=== PATIENT | female | born 1995 ===

== ENCOUNTER 2018-07-18 16:37 | Inpatient (IN) | payer MEDICAID ==
[2018-07-18 16:47] VITALS: O2SAT 99
--- NOTE | 2018-07-18 16:53 | C.PDOC ---
History Of Present Illness 22 y/o female is transferred from [facility] for psychiatric evaluation. Patient has been medically cleared prior to transfer arrival. Patient has no new symptoms or any complaints at this time. TRANSFER FROM [facility] FOR PSYCH TRANSFER. MED CLEAR PRIOR TO TRANSFER ARRIVAL. NO NEW SX EXAM NEG Time Seen by Provider: 07/18/18 16:43 History Per: Patient History/Exam Limitations: no limitations Onset/Duration Of Symptoms: Days Current Symptoms Are (Timing): Still Present Past Medical History Reviewed: Historical Data, Nursing Documentation, Vital Signs Vital Signs: Last Vital Signs Temp 98.8 F 07/18/18 16:41 Pulse 68 07/18/18 16:41 Resp 20 07/18/18 16:41 BP 111/70 07/18/18 16:41 Pulse Ox 99 07/18/18 16:41 Family History: States: No Known Family Hx Review Of Systems Except As Marked, All Systems Reviewed And Found Negative. Psych: Positive for: Depression Physical Exam - Physical Exam Appears: Non-toxic, No Acute Distress Skin: Warm, Dry Head: Atraumatic, Normacephalic Eye(s): bilateral: Normal Inspection Oral Mucosa: Moist Neck: Supple Cardiovascular: Rhythm Regular, No Murmur Respiratory: Normal Breath Sounds, No Rales, No Rhonchi, No Wheezing, Other (NARD) Extremity: Bilateral: Atraumatic, Normal Color And Temperature, Normal ROM Neurological/Psych: Oriented x3, Normal Speech ED Course And Treatment O2 Sat by Pulse Oximetry: 99 (RA) Pulse Ox Interpretation: Normal Disposition Counseled Patient/Family Regarding: Studies Performed, Diagnosis - Disposition Disposition: HOSPITALIZED Disposition Time: 16:44 Condition: STABLE - POA Present On Arrival: None - Clinical Impression Clinical Impression: Depression - Scribe Statement The provider has reviewed the documentation as recorded by the Buddyibedenilson Gongora Provider Attestation: All medical record entries made by the Buddyibedenilson were at my direction and personally dictated by me. I have reviewed the chart and agree that the record accurately reflects my personal performance of the history, physical exam, medical decision making, and the department course for this patient. I have also personally directed, reviewed, and agree with the discharge instructions and disposition.
--- NOTE | 2018-07-18 18:46 | PCM.BM ---
<Radha Roman - Last Filed: 07/18/18 18:45> Treatment Plan Problems - Problems identified on initial assessmt Suicidal Ideation Date Initiated: 07/18/18 Time Initiated: 17:30 Assessment reference: NA Status: Monitor Self Harm Date Initiated: 07/18/18 Time Initiated: 17:30 Assessment reference: NA Status: Active Treatment assets and liabiliti Patient Assests: good support system, negotiates basic needs Patient Liabilities: poor support system, relationship conflicts - Milieu Protocol Maintain good personal hygiene: daily Encourage regular showers, daily Remind patient to perform daily oral care, every shift Assist patient to perform ADL's Conduct patient checks and document Observation sheet: Q15 minutes Maintain personal safety: every shift Educate patient to report safety concerns to staff, every shift Monitor environment for contraband/sharps Medication safety: Monitor for expected outcome, potential side effects: every shift, Assess barriers to learning: every shift, Assess readiness for medication education: every shift <Israel Jones - Last Filed: 07/20/18 11:08> - Diagnosis (1) Depression Status: Acute Interventions: 07/20/18 11:08 * Assess/adjust medications daily and /or as needed * See patient on an individual basis 7x/week to assess symptoms of depression * Monitor for side effects & effectiveness of medications * <Jazmin Saldivar - Last Filed: 07/20/18 11:52> Family Contact Family involvement: Family/SO is involved Family contact: Patient declines to allow family contact at present - Goals for Treatment Patient goals for treatment: "I need an outpatient program." Discharge/Continuing Care - Education Needs Education Needs: Patient Medication, Patient Coping Skills - Discharge Discharge Criteria: Tolerates medication w/o severe side effects, Reduction of target symptoms Discharge to:: Home, With Family - Treatment Team Participation Discussed with Family/SO: No Was Patient/Family/SO present at Treatment Team Meeting: Yes
[2018-07-19 09:19] LABS: FREE T4 1.01 ng/dL (0.78-2.19)
[2018-07-19] MEDS: Pantoprazole 40 mg EC Tab PO SCH (09:26)
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
[2018-07-20] MEDS: Pantoprazole 40 mg EC Tab PO SCH (09:51)
--- NOTE | 2018-07-20 11:09 | PCM.PYCHPN ---
Psychiatric Progress Note - Psychiatric Progress Note Patient seen today, length of contact: 15 min Patient Chief Complaint: I am still feeling irritable Problems Identified/Issues Discussed: Patient was seen and evaluated, chart reviewed discussed with staff. Patient still reports depressed mood and still reports feelings of hopelessness. As per staff she is less irritable and less agitated than before. She still reports some irritability and agitation however she remained calm and cooperative and easily redirectable. She denies any auditory and visual hallucinations. She is taking medication but denies any side effects. She needs to stay longer for further stabilization. Medication Change: Yes Medical Record Reviewed: Yes Mental Status Examination - Cognitive Function Orientation: Person, Place, Situation, Time Memory: Intact Attention: WNL Concentration: Poor Association: WNL Fund of Knowledge: Poor - Mood Mood: Depressed, Anxious - Affect Affect: Constricted - Speech Speech: Soft - Formal Thought Process Formal Thought Process: No Impairment - Suicidal Ideation Suicidal Ideation: No - Homicidal Ideation Homicidal Ideation: No Goal/Treatment Plan - Goal/Treatment Plan Need for Continued Stay: Remain at risks for inpatient hospitalization Progress Toward Problem(s) and Goals/Treatment Plan: Major depression, recurrent, severe, w/o psychosis CYNTHIA r/o Borderline personality Start Lexapro for depression and anxiiety As need medications All risks, benefits and alternatives of the meds discussed, and the pt agreed and understood. Attend groups and activities Individual therapy daily Psychoeducation and support daily Suicide precautions - agreed with safety plan Encourage compliance with meds and after care Refer to outpatient program Teach healthy lifestyle methods, i.e. diet, exercise, meditation Smoking cessation and patch if needed
[2018-07-21] MEDS ORDERED: Pneumococcal 23-Valent Vaccine IM ONE (10:00)
[2018-07-21] MEDS: Pantoprazole 40 mg EC Tab PO SCH (11:12)
[2018-07-21] MEDS ORDERED: Simethicone 80 mg Chewtab PO PRN (19:49)
[2018-07-21] MEDS: Aluminum Hydroxide/Magnesium Hydroxide Susp (30 mL) PO PRN (22:13)
[2018-07-22] MEDS: Pantoprazole 40 mg EC Tab PO SCH (10:09)
--- NOTE | 2018-07-22 11:06 | PCM.PYCHPN ---
Psychiatric Progress Note - Psychiatric Progress Note Patient seen today, length of contact: 15 min Patient Chief Complaint: I am still feeling irritable Problems Identified/Issues Discussed: Patient was seen and evaluated, chart reviewed discussed with staff. Patient reports improvement in her mood and reports improvement in the feelings of hopelessness and helplessness. She reports some improvement in her irritability and agitation. She still complaining of abdominal pain. She is reporting dizziness and tremors from medications. She denies any auditory hallucinations or any paranoia. However she is taking medications and denies any other side effects. She needs to stay longer for further stabilization. Supportive therapy was given. Medication Change: Yes Medical Record Reviewed: Yes Mental Status Examination - Cognitive Function Orientation: Person, Place, Situation, Time Memory: Intact Attention: WNL Concentration: Poor Association: WNL Fund of Knowledge: Poor - Mood Mood: Depressed, Anxious - Affect Affect: Constricted - Speech Speech: Soft - Formal Thought Process Formal Thought Process: No Impairment - Suicidal Ideation Suicidal Ideation: No - Homicidal Ideation Homicidal Ideation: No Goal/Treatment Plan - Goal/Treatment Plan Need for Continued Stay: Remain at risks for inpatient hospitalization Progress Toward Problem(s) and Goals/Treatment Plan: Major depression, recurrent, severe, w/o psychosis CYNTHIA r/o Borderline personality Lexapro for depression and anxiiety Discontinue Neurontin Trazodone for insomnia Lamotrigine for mood As need medications All risks, benefits and alternatives of the meds discussed, and the pt agreed and understood. Attend groups and activities Individual therapy daily Psychoeducation and support daily Suicide precautions - agreed with safety plan Encourage compliance with meds and after care Refer to outpatient program Teach healthy lifestyle methods, i.e. diet, exercise, meditation Smoking cessation and patch if needed
[2018-07-23] MEDS: Pantoprazole 40 mg EC Tab PO SCH (09:26)
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
[2018-07-23] MEDS ORDERED: Iohexol 240 (50 ml) PO ONE (16:45)
[2018-07-23 17:04] LABS: INR 1.1; PROTHROMBIN TIME 12.5 SECONDS (9.7-12.2)
[2018-07-23 17:11] LABS: ALB/GLOB RATIO 1.4 (1.0-2.1); ALBUMIN 4.5 g/dL (3.5-5.0); ALT/SGPT 27 U/L (9-52); AST/SGOT 36 U/L (14-36); BASO # 0.1 K/uL (0.0-0.2); BASO % 1.3 % (0.0-2.0); BLOOD UREA NITROGEN 10 mg/dL (7-17); CALCIUM 9.5 mg/dl (8.6-10.4); EOS # 0.3 K/uL (0.0-0.7); EOS % 3.1 % (0.0-4.0); GFR NON-AFRICAN AMERICAN > 60; HEMOGLOBIN 13.2 g/dL (11.0-16.0); LIPASE 133 U/L (23-300); LYMPH # 2.6 K/uL (1.0-4.3); LYMPH % 28.3 % (20.0-40.0); MEAN CELL VOLUME 92.2 fL (81.0-99.0); MEAN CORPUSCULAR HEMOGLOBIN 29.7 pg (27.0-31.0); MEAN CORPUSCULAR HGB CONC 32.2 g/dL (33.0-37.0); MEAN PLATELET VOLUME 7.4 fL (7.2-11.7); MONO % 10.6 % (0.0-10.0); NEUT # 5.2 K/uL (1.8-7.0); NEUT % 56.7 % (50.0-75.0); RBC 4.45 Mil/uL (3.80-5.20); RED CELL DISTRIBUTION WIDTH 14.1 % (11.5-14.5); WHITE BLOOD COUNT 9.1 K/uL (4.8-10.8)
--- NOTE | 2018-07-24 09:08 | RAD ---
Chest x-ray two views HISTORY: Chest pain. Comparison: None available. Findings: No focal infiltrate or effusion. Bibasilar breast and nipple shadows. Heart size within normal limits. Impression: No focal infiltrate or effusion.
--- NOTE | 2018-07-24 09:26 | PCM.PYCHPN ---
Psychiatric Progress Note - Psychiatric Progress Note Patient seen today, length of contact: 15 min Patient Chief Complaint: I am still feeling irritable Problems Identified/Issues Discussed: Patient was seen and evaluated, chart reviewed discussed with staff. Patient reports racing thoughts and irritability. However, she reports some improvement in her mood and reports improvement in the feelings of hopelessness and helplessness. She still complaining of abdominal pain. She denies any auditory hallucinations or any paranoia. However she is taking medications and denies any other side effects. She needs to stay longer for further stabilization. Supportive therapy was given. Medication Change: Yes Medical Record Reviewed: Yes Mental Status Examination - Cognitive Function Orientation: Person, Place, Situation, Time Memory: Intact Attention: WNL Concentration: Poor Association: WNL Fund of Knowledge: Poor - Mood Mood: Depressed, Anxious - Affect Affect: Constricted - Speech Speech: Soft - Formal Thought Process Formal Thought Process: Flight of ideas - Suicidal Ideation Suicidal Ideation: No - Homicidal Ideation Homicidal Ideation: No Goal/Treatment Plan - Goal/Treatment Plan Need for Continued Stay: Remain at risks for inpatient hospitalization Progress Toward Problem(s) and Goals/Treatment Plan: Bipolar disorder mixed severe, w/o psychosis CYNTHIA r/o Borderline personality Lexapro for depression and anxiiety Trazodone for insomnia Lamotrigine for mood As need medications All risks, benefits and alternatives of the meds discussed, and the pt agreed and understood. Attend groups and activities Individual therapy daily Psychoeducation and support daily Suicide precautions - agreed with safety plan Encourage compliance with meds and after care Refer to outpatient program Teach healthy lifestyle methods, i.e. diet, exercise, meditation Smoking cessation and patch if needed
--- NOTE | 2018-07-24 09:58 | CT ---
Date of service: 07/23/2018 PROCEDURE: CT Abdomen and Pelvis with Oral contrast. HISTORY: severe abdominal pain COMPARISON: None. TECHNIQUE: Contiguous axial images of the abdomen and pelvis. Oral contrast was administered. No IV contrast given. Coronal and Sagittal reformats generated. Radiation dose: Total exam DLP = 943.28 mGy-cm. This CT exam was performed using one or more of the following dose reduction techniques: Automated exposure control, adjustment of the mA and/or kV according to patient size, and/or use of iterative reconstruction technique. FINDINGS: LOWER THORAX: Unremarkable. LIVER: The liver is mildly enlarged. GALLBLADDER AND BILE DUCTS: No evidence of acute cholecystitis or biliary duct dilatation. PANCREAS: Unremarkable. No mass. No ductal dilatation. SPLEEN: Unremarkable. No splenomegaly. ADRENALS: Unremarkable. KIDNEYS AND URETERS: Unremarkable. No stone or hydronephrosis. BLADDER: Grossly unremarkable. REPRODUCTIVE: There is IUD seen in the uterus. APPENDIX: There is no evidence of appendicitis BOWEL: The stomach is mildly distended. There is yfwd-[id number]-pimpbhlg small bowel wall thickening noted in the mid and upper abdomen likely involve the duodenum. Findings are nonspecific and the possibility of enteritis should be considered. No evidence of high-grade bowel obstruction. Fgqd-[id number]-yyyrhbix constipation noted. PERITONEUM: Unremarkable. No fluid collection. No free air. LYMPH NODES: Unremarkable. No enlarged lymph nodes. VASCULATURE: Unremarkable. No aortic aneurysm. No aortic atherosclerotic calcification or mural plaque present. BONES: No fracture or destructive lesion. OTHER FINDINGS: None. IMPRESSION: Iihr-fi-ferlrynb proximal small bowel wall thickening suspicious for enteritis. No evidence of bowel obstruction. Jqng-hw-snchdfdt constipation. Preliminary report contains concordant findings was submitted by [facility] Radiology.
[2018-07-24] MEDS: Pantoprazole 40 mg EC Tab PO SCH (10:10)
--- NOTE | 2018-07-24 13:40 | RAD ---
Date of service: 07/23/2018 PROCEDURE: Radiographs of the Chest and Left Ribs. HISTORY: LUQ pain, ribs 5-8 COMPARISON: None available. TECHNIQUE: Frontal radiograph of the chest and multiple oblique radiographs of the left ribs were obtained. FINDINGS: LEFT RIBS: No fracture or focal lesion visualized. LUNGS: Clear. PLEURA: No pneumothorax or pleural fluid. CARDIOVASCULAR: Normal cardiac size. No pulmonary vascular congestion. No aortic atherosclerotic calcification present OTHER FINDINGS: None. IMPRESSION: Unremarkable radiographs of the chest and left ribs. No left rib fracture.
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
[2018-07-25] MEDS: Pantoprazole 40 mg EC Tab PO SCH (09:18)
[2018-07-25] MEDS: Aluminum Hydroxide/Magnesium Hydroxide Susp (30 mL) PO PRN (18:08)
[2018-07-26] MEDS: Pantoprazole 40 mg EC Tab PO SCH (09:18)
[2018-07-27] MEDS: Pantoprazole 40 mg EC Tab PO SCH (09:46)
[2018-07-28] MEDS: Pantoprazole 40 mg EC Tab PO SCH (09:26)
[2018-07-28 10:18] VITALS: BP 129/79; PULSE 94; RESP 19; TEMP 98.1
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
== END 2018-07-28 11:46 | disposition home or self-care (01) | DRG 753 ==
LOC: C.ER 16:37 → C.5E 16:53
PROVIDERS: ADMIT Psychiatry & Neurology Psychiatry; ATTEND Psychiatry & Neurology Psychiatry
PROC: GZHZZZZ Group Psychotherapy (ICD-10-PCS; principal; 2018-07-18)
PROC: GZ56ZZZ Individual Psychotherapy, Supportive (ICD-10-PCS; 2018-07-18)
DX: F31.63 Bipolar disorder, current episode mixed, severe, without psychotic features (principal); E03.9 Hypothyroidism, unspecified; F41.9 Anxiety disorder, unspecified; G47.00 Insomnia, unspecified; K59.00 Constipation, unspecified; Z91.5 Personal history of self-harm; Z97.5 Presence of (intrauterine) contraceptive device; Z91.410 Personal history of adult physical and sexual abuse